=== PATIENT | male | born 1980 | race Caucasian/White ===

== ENCOUNTER 2024-11-08 00:08 | Emergency (ER) | payer BC, SELFPAY ==
[2024-11-08 00:10] VITALS: BP 155/96
--- NOTE | 2024-11-08 00:56 | ED.GENMED ---
History of Present Illness
<Marycarmen Byrd MD - Last Filed: 11/08/24 02:01>
General
Chief Complaint: Abdominal Symptoms
Source: patient and spouse
Exam Limitations: none
Time Seen by Provider: 11/08/24 00:21
Nursing documentation reviewed up to this point in time: agreed with
History of Present Illness
History of Present Illness:
The patient is a 44-year-old man who presents with severe abdominal pain, nausea, vomiting and diarrhea that started several hours ago yesterday. Patient reports he has had 3 episodes of nonbloody diarrhea. His abdominal pain is mostly in his
epigastric area and central abdomen. He denies fevers and chills. He denies sick contacts. Patient is deaf and his is signing for him. He denies any abdominal surgery
Past History
<Marycarmen Byrd MD - Last Filed: 11/08/24 02:01>
Past History
ED Past Medical History: HTN and Other (Kidney stones, deaf)
ED Past Surgical History: Orthopedic
Social History
Tobacco: Non-smoker
Alcohol: None
Drug: None
Personal:
Living: with family
Employment: Other
Family History
Family History: Other
Review of Systems
<Marycarmen Byrd MD - Last Filed: 11/08/24 02:01>
Review of Systems
Allergies reviewed?: Yes
All Other Systems: ROS reviewed and negative except as documented in HPI and ROS
Constitutional: Reports no symptoms
EENT: Reports no symptoms
Respiratory: Reports no symptoms
Cardiac: Reports other (Lightheaded)
ABD/GI: Reports abdominal pain, nausea, vomiting and diarrhea
: Reports no symptoms
Musculoskeletal: Reports no symptoms
Skin: Reports no symptoms
Neurological: Reports no symptoms
Endocrine: Reports no symptoms
Hematologic/Lymphatic: Reports no symptoms
Psychiatric: Reports no symptoms
Phy Exam
<Marycarmen Byrd MD - Last Filed: 11/08/24 02:01>
Physical Exam
Physical Exam:
Physical Exam
General: Patient appears anxious, uncomfortable
Neck: supple. no meningeal signs. normal posterior pharynx
Heart: s1/s2 regular rate and rhythm, no murmur. equal radial pulses.
Lungs: no acute respiratory distress. clear bilaterally
Abdomen: Soft. Epigastric and periumbilical tenderness. No rebound or guarding. No pulsatile mass.
Neuro: alert and oriented. no focal neurological deficits
Skin: no rash
Psychiatric: well kept. interactive and cooperative
Extremities: no edema. no calf tenderness. negative homans. good distal pulses
Course
<Marycarmen Byrd MD - Last Filed: 11/08/24 02:01>
Orders/Labs/Results
Orders:
Orders
11/08/24 00:26
Morphine Sulfate 4 mg IV NOW STA
Ondansetron Injectable [Zofran] 4 mg IV NOW STA
11/08/24 00:27
0.9% Sodium Chloride 1000 ml [Nss] 1,000 ml IV BOLUS
11/08/24 00:53
CT Abd/pelvis W Iv Cont Urgent
Comment:
Reason For Exam: n/v/d severe central ab pain
11/08/24 01:26
Complete Blood Count/With Diff Urgent
Comprehensive Metabolic Panel Urgent
Lipase Urgent
11/08/24 02:01
Ketorolac [Toradol] 30 mg IV NOW STA
Ondansetron Injectable [Zofran] 4 mg IV NOW STA
11/08/24 03:36
Ondansetron Orally Disint [Zofran Odt (Orally Disintegrating)] 4 mg PO NOW STA
Abnormal Lab Results
11/08/24
01:26
WBC 16.1 H 10^3/uL
(4.8-10.8)
Abs Immat Gran (auto) 0.1 H 10^3/uL
(0-0.05)
Absolute Neuts (auto) 14.3 H 10^3/uL
(1.4-6.5)
Absolute Lymphs (auto) 0.6 L 10^3/uL
(1.2-3.4)
Absolute Monos (auto) 1.0 H 10^3/uL
(0.1-0.6)
Neutrophils % 89.0 H %
(42.2-75.2)
Lymphocytes % 3.5 L %
(20.5-51.1)
BUN 25 H mg/dl
(9-20)
Creatinine 1.5 H mg/dL
(0.7-1.3)
Glucose 130 H mg/dl
(70-99)
Albumin 5.1 H g/dl
(3.5-5.0)
11/08/24 01:26
11/08/24 01:26
Vital Signs
Initial and Last Documented VS:
Initial Vital Signs
Temp Pulse Resp BP Pulse Ox
97.9 F 84 26 155/96 97
11/08/24 00:10 11/08/24 00:10 11/08/24 00:10 11/08/24 00:10 11/08/24 00:10
Last Documented Vital Signs
Temp Pulse Resp BP Pulse Ox
97.3 F 84 26 128/96 95
11/08/24 02:36 11/08/24 00:10 11/08/24 00:10 11/08/24 03:00 11/08/24 03:15
<Wild Borjas MD - Last Filed: 11/08/24 04:06>
Orders/Labs/Results
Orders:
Orders
11/08/24 00:26
Morphine Sulfate 4 mg IV NOW STA
Ondansetron Injectable [Zofran] 4 mg IV NOW STA
11/08/24 00:27
0.9% Sodium Chloride 1000 ml [Nss] 1,000 ml IV BOLUS
11/08/24 00:53
CT Abd/pelvis W Iv Cont Urgent
Comment:
Reason For Exam: n/v/d severe central ab pain
11/08/24 01:26
Complete Blood Count/With Diff Urgent
Comprehensive Metabolic Panel Urgent
Lipase Urgent
11/08/24 02:01
Ketorolac [Toradol] 30 mg IV NOW STA
Ondansetron Injectable [Zofran] 4 mg IV NOW STA
11/08/24 03:36
Ondansetron Orally Disint [Zofran Odt (Orally Disintegrating)] 4 mg PO NOW STA
Abnormal Lab Results
11/08/24
01:26
WBC 16.1 H 10^3/uL
(4.8-10.8)
Abs Immat Gran (auto) 0.1 H 10^3/uL
(0-0.05)
Absolute Neuts (auto) 14.3 H 10^3/uL
(1.4-6.5)
Absolute Lymphs (auto) 0.6 L 10^3/uL
(1.2-3.4)
Absolute Monos (auto) 1.0 H 10^3/uL
(0.1-0.6)
Neutrophils % 89.0 H %
(42.2-75.2)
Lymphocytes % 3.5 L %
(20.5-51.1)
BUN 25 H mg/dl
(9-20)
Creatinine 1.5 H mg/dL
(0.7-1.3)
Glucose 130 H mg/dl
(70-99)
Albumin 5.1 H g/dl
(3.5-5.0)
11/08/24 01:26
11/08/24 01:26
Vital Signs
Initial and Last Documented VS:
Initial Vital Signs
Temp Pulse Resp BP Pulse Ox
97.9 F 84 26 155/96 97
11/08/24 00:10 11/08/24 00:10 11/08/24 00:10 11/08/24 00:10 11/08/24 00:10
Last Documented Vital Signs
Temp Pulse Resp BP Pulse Ox
97.3 F 84 26 128/96 95
11/08/24 02:36 11/08/24 00:10 11/08/24 00:10 11/08/24 03:00 11/08/24 03:15
<Marycarmen Byrd MD - Last Filed: 11/08/24 02:01>
MDM/Problems Addressed
Differential Diagnosis Includes:
Acute cholecystitis, biliary colic, acute appendicitis, gastroenteritis
MDM/Problems Addressed:
Patient presents with acute abdominal pain, nausea, vomiting diarrhea
Acute Exacerbation and/or Progression of Chronic Illness:
Patient is acutely hypertensive, but he is admitting to severe pain
Acute Exacerbation and/or Progression of Chronic Illness: HTN
<Marycarmen Byrd MD - Last Filed: 11/08/24 02:01>
*Pulse Oximetry
Patient hypoxic: no
<Wild Borjas MD - Last Filed: 11/08/24 04:06>
*Critical Care Note
Total Time (30-74mins, 75-104mins- exclusive of procedures): Not Applicable
<Wild Borjas MD - Last Filed: 11/08/24 04:06>
Update Note
Update Note:
CT abdomen and pelvis report reviewed and discussed with patient, consistent with likely enteritis. Patient given IV fluids and antiemetic treatment, with improvement in symptoms. Patient without any further vomiting episodes after treatment.
Otherwise, patient remains afebrile, hemodynamic stable, and nontoxic-appearing. History and exam consistent with likely viral illness. Patient will be discharged home in stable condition, to the care of his family, with recommendation to continue
hydration at home, along with PCP follow-up as needed.
ED Attending Note
<Marycarmen Byrd MD - Last Filed: 11/08/24 02:01>
-
Portions of this chart may have been created with voice recognition software.� Occasional wrong word or��sound alike� substitutions may have occurred due to the inherent limitations of voice recognition software.
Discharge Plan
Departure
Patient Disposition: Home (Routine Discharge)
Date of Disposition: 11/08/24
Time of Disposition: 03:38
Patient with high blood pressure during this ER visit?: Yes
Condition: Good
Discharge Problem:
Gastroenteritis
Instructions: Viral gastroenteritis in adults
Prescriptions:
New
ondansetron 4 mg Tablet,Disintegrating
4 mg PO TIDPRN PRN (Reason: nausea/vomiting) Qty: 12 0RF
Referrals:
SARA DAWSON [Other]
Activity Restrictions/Additional Instructions:
As discussed, please follow-up with your primary care physician with any further concerns. Your prescription has been sent electronically to [facility] pharmacy in [place].
Interventions
Interventions:
*Risk Screen - Suicide Last Done: 11/08/24 00:10
*General Assessment Last Done: 11/08/24 00:40
*Neglect/Abuse Screening Last Done: 11/08/24 00:10
ED- Fall Risk Assessment Last Done: 11/08/24 00:40
*ED COVID-19 Vaccine History Last Done: 11/08/24 00:40
*Nursing Disposition Last Done: 11/08/24 03:35
SM-Uyzrwx-[id number] Assessment Last Done: 11/08/24 00:40
Discharge Date and Time
Discharge Date/Time: 11/08/24 03:49
Print Language: YI
[2024-11-08 01:29] VITALS: BMI 30.5
[2024-11-08] MEDS: ZOFRAN 4 MG IV ×2 (01:30→02:31)
[2024-11-08] MEDS: MORPHINE SULFATE 4 MG IV (01:30)
[2024-11-08] MEDS: NSS 1000 IV (01:30)
[2024-11-08 01:33] VITALS: BP 140/84
[2024-11-08 01:39] LABS: % Basophils 0.4 % (0-2); % Eosinophils 0.7 % (0-6); % Immature Granulocytes 0.4 % (0-0.5); % Lymphocytes 3.5 % (20.5-51.1); Absolute Basophils 0.1 10^3/uL (0-0.2); Absolute Eosinophils 0.1 10^3/uL (0-0.7); Absolute Immature Granulocytes 0.1 10^3/uL (0-0.05); Absolute Lymphocytes 0.6 10^3/uL (1.2-3.4); Absolute Neutrophils 14.3 10^3/uL (1.4-6.5); Hematocrit 44.6 % (39.0-52.0); Hemoglobin 14.7 g/dL (13.0-18.0); Mean Corpuscular Hgb 29.3 pg (27.0-31.0); Mean Corpuscular Volume 88.8 fL (80.0-94.0); Mean Platelet Volume 9.2 fL (7.4-10.4); Nucleated Red Blood Cells % 0 % (-); Platelet Count 308 10^3/uL (130-400); Red Blood Cell Count 5.02 10^6/uL (4.70-6.10); Red Cell Dist. Width 12.6 % (11.5-14.5); White Blood Cell Count 16.1 10^3/uL (4.8-10.8)
[2024-11-08 01:55] LABS: ALT (SGPT) 20 U/L (0-50); AST (SGOT) 30 U/L (17-59); Albumin 5.1 g/dl (3.5-5.0); Alkaline Phosphatase 58 U/L (38-126); Blood Urea Nitrogen 25 mg/dl (9-20); Calcium 9.7 mg/dl (8.4-10.2); Carbon Dioxide 25 mmol/L (22-30); Chloride 104 mmol/L (98-107); Estimated Creatinine Clearance 80 ml/min; Glucose 130 mg/dl (70-99); Lipase 154 U/L (23-300); Potassium 4.9 mmol/L (3.5-5.1); Sodium 142 mmol/L (135-145); Total Bilirubin 0.4 mg/dl (0.2-1.3); Total Protein 7.9 g/dl (6.3-8.2); eGFR 58.51
[2024-11-08 02:00] VITALS: BP 131/90
[2024-11-08] MEDS: TORADOL 30 MG IV (02:31)
[2024-11-08 03:00] VITALS: BP 128/96
[2024-11-08] MEDS: ZOFRAN ODT (ORALLY DISINTEGRATING) 4 MG PO (03:47)
== END 2024-11-08 03:49 | disposition home or self-care (01) ==
LOC: EMR 00:08
PROVIDERS: EMERGENCY PHYSICIAN Emergency Medicine
DX: K52.9 Noninfective gastroenteritis and colitis, unspecified (principal); I10 Essential (primary) hypertension; Z87.442 Personal history of urinary calculi
CPT/HCPCS: 96374; 96375; 96376; 96361; 99285; 74177; 80053; 83690; 85025; Q9967